=== PATIENT | male | born 1995 | race Caucasian/White ===

== ENCOUNTER 2020-02-25 08:17 | Emergency (ER) | payer SELFPAY ==
--- NOTE | 2020-02-25 09:08 | ER Document Report ---
ED General - General Chief Complaint: Drug Abuse Stated Complaint: PSYCH Time Seen by Provider: 02/25/20 08:56 - HPI Notes: 24-year-old male presents with drug abuse, seeking help. Patient states that he does meth fairly regularly, usually uses it every day. He states that he smokes it, snorts it, and shoots it. He additionally smokes marijuana and uses cocaine. States that he last used meth about 2 days ago. He states that he is "ready to get off drugs". Additionally per EMS, patient was hallucinating in the back of the ambulance, talking to people who were not there. He also reference that he was seeing snakes. Patient currently denies this. Patient additionally denies homicidal or suicidal ideations. He denies chest pain, shortness of breath, abdominal pain. - Related Data Allergies/Adverse Reactions: No Known Allergies Allergy (Verified 02/25/20 08:30) Past Medical History - General Information source: Patient - Social History Smoking Status: Current Every Day Smoker Frequency of alcohol use: Heavy Drug Abuse: Cocaine, Marijuana, Methamphetamine Family History: Reviewed & Not Pertinent Patient has homicidal ideation: No Review of Systems - Review of Systems Constitutional: denies: Fever EENT: No symptoms reported Cardiovascular: denies: Chest pain Respiratory: denies: Short of breath Gastrointestinal: denies: Abdominal pain Genitourinary: No symptoms reported Male Genitourinary: No symptoms reported Musculoskeletal: denies: Joint pain Skin: denies: Lesions Hematologic/Lymphatic: No symptoms reported Neurological/Psychological: Hallucinations Physical Exam - Vital signs Vitals: Temp Pulse Resp BP Pulse Ox 98.4 F 130 H 24 H 157/103 H 100 02/25/20 08:28 02/25/20 08:28 02/25/20 08:28 02/25/20 08:28 02/25/20 08:28 - General General appearance: Alert In distress: None - HEENT Head: Normocephalic, Atraumatic Eyes: No: Scleral icterus Extraocular movements intact: Yes Pupils: PERRL - Respiratory Breath sounds: Normal - Cardiovascular Rhythm: Regular, Tachycardia Heart sounds: Normal auscultation - Abdominal Tenderness: Nontender - Back Back: Nontender - Extremities General upper extremity: Normal inspection General lower extremity: Normal inspection - Neurological Neuro grossly intact: Yes Orientation: AAOx4 - Psychological Associated symptoms: Other - Patient exhibits some psychomotor agitation, he was seen pacing around and kicking the bottom of the bed. He does appear to look off into the distance and possibly responding to internal stimuli. He does request to "talk to that jasmeetmarya Baig" - Skin Skin Temperature: Warm Course - Re-evaluation Re-evalutation: 02/25/20 09:52 24-year-old male here for polysubstance abuse, meth/marijuana/cocaine. Per EMS there was concern for hallucinations. On exam he is a bit agitated, pacing about the room and kicking things. He does appear to be responding to internal stimuli. Given that he has not used methamphetamine in 2 days, concern for po ssible withdrawal state. Although he does appear to be intoxicated. Initially concern for potential drug-induced psychosis given the hallucinations. Will have psych consulted. Will start with 2 mg of Ativan to see if we can help calm him. Check labs and EKG. 02/25/20 10:10 Patient observed to be pacing around the room and looking under her bed sheets and mattress. Appears to be preoccupied internally. 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 Have recommended Thorazine 50 mg 3 times daily, Cogentin 1 mg daily. Have ordered these medications. 02/25/20 12:53 Patient continues to be responding to internal stimuli, he appears to be engaged in conversation with someone who is not in the room. This might have a little bit increased agitation, had success with benzodiazepines early, have ordered another oral dose. 02/25/20 14:48 Patient continues to exhibit psychosis, still redirectable and relatively pleasant. However and we discussed with behavioral health, concerned that Thorazine really has not had much effect, has received 2 doses at this point. Decision made to discontinue Thorazine. Will give Haldol IM now. QTC was within normal limits on EKG. Will repeat EKG once he is more calm. 02/25/20 15:41 Patient is now much more calm appearing status post Haldol. Repeat EKG obtain ed, has normal QTc. 02/25/20 16:28 Patient care is being turned over to Dr. Connelly, pending behavioral health final plan - Vital Signs Vital signs: Temp Pulse Resp BP Pulse Ox 98.4 F 90 24 H 157/103 H 100 02/25/20 08:30 02/25/20 11:52 02/25/20 08:28 02/25/20 08:28 02/25/20 08:28 - Laboratory Result Diagrams: 02/25/20 08:25 02/25/20 08:25 Laboratory results interpreted by me: 02/25/20 02/25/20 02/25/20 08:25 08:25 10:33 WBC 11.5 H Absolute Neuts (auto) 8.6 H Sodium 147.5 H Chloride 108 H BUN 21 H Creatinine 1.54 H Est GFR (MDRD) Non-Af 55 L Glucose 150 H Total Bilirubin 1.8 H Total Protein 8.3 H Urine Protein 100 H Urine Ketones 20 H Urine Blood LARGE H Urine Urobilinogen 2.0 H Ur Leukocyte Esterase TRACE H - EKG Interpretation by Me Additional EKG results interpreted by me: 02/25/20 09:56 EKG is interpreted by me. Sinus tachycardia, rate 101. Narrow QRS, QTC within normal limits. No ST elevation. 02/25/20 15:41 Repeat EKG is interpreted by me. Sinus tachycardia has resolved, rate now 77. QTc remains within normal limits. He does have a brief sinus pause. Discharge - Discharge Clinical Impression: Polysubstance abuse Psychosis Qualifiers: Psychosis type: brief psychotic disorder Qualified Code(s): F23 - Brief psychotic disorder Disposition: OTHER
[2020-02-25] MEDS ORDERED: LORAZEPAM INJ 2 MG/1 ML VIAL IV ONE (09:13)
[2020-02-25 09:21] LABS: ABSOLUTE BASOPHILS # (AUTO) 0.1 10^3/uL (0.0-0.2); ABSOLUTE LYMPHOCYTES (AUTO) 1.9 10^3/uL (0.5-4.7); ABSOLUTE MONOCYTES (AUTO) 0.9 10^3/uL (0.1-1.4); ABSOLUTE NEUT (AUTO) 8.6 10^3/uL (1.7-8.2); BASOPHILS % (AUTO) 0.5 % (0-2); EOSINOPHILS % (AUTO) 0.3 % (0-6); HEMATOCRIT 44.4 % (37.9-51.0); HEMOGLOBIN 15.3 g/dL (13.5-17.0); LYMPHOCYTES % (AUTO) 16.7 % (13-45); MEAN CORPUSCULAR HGB CONC 34.4 g/dL (32.0-36.0); MEAN CORPUSCULAR VOLUME 87 fl (80-97); MONOCYTES % (AUTO) 8.1 % (3-13); PLATELET COUNT 427 10^3/uL (150-450); RED CELL DISTRIBUTION WIDTH 13.2 % (11.5-14.0); SEGMENTED NEUTROPHILS % (AUTO) 74.4 % (42-78); TOTAL CELLS COUNTED % (AUTO) 100 %; WHITE BLOOD COUNT 11.5 10^3/uL (4.0-10.5)
[2020-02-25 09:32] LABS: ALKALINE PHOSPHATASE 71 U/L (38-126); ANION GAP 16 (5-19); ASPARTATE AMINO TRANSFERASE 48 U/L (17-59); BILIRUBIN,DIRECT 0.4 mg/dL (0.0-0.4); BILIRUBIN,TOTAL 1.8 mg/dL (0.2-1.3); BLOOD UREA NITROGEN 21 mg/dL (7-20); CALCIUM 10.2 mg/dL (8.4-10.2); CARBON DIOXIDE 24 mmol/L (22-30); CHLORIDE 108 mmol/L (98-107); GLUCOSE 150 mg/dL (75-110); POTASSIUM 3.7 mmol/L (3.6-5.0); TOTAL PROTEIN 8.3 g/dL (6.3-8.2)
[2020-02-25 09:37] LABS: ALCOHOL < 10 mg/dL (NONE DETECTED)
[2020-02-25] MEDS ORDERED: RINGERS SOLUTION,LACTATED 1,000 ML IV ONE (10:02)
--- NOTE | 2020-02-25 10:02 | RADIOLOGY REPORT (SQ) ---
EXAM DESCRIPTION: CHEST SINGLE VIEW IMAGES COMPLETED DATE/TIME: 02/25/2020 9:43 am REASON FOR STUDY: meth use COMPARISON: None. EXAM PARAMETERS: NUMBER OF VIEWS: One view. TECHNIQUE: Single frontal radiographic view of the chest acquired. RADIATION DOSE: NA LIMITATIONS: None. FINDINGS: LUNGS AND PLEURA: No opacities, masses or pneumothorax. No pleural effusion. MEDIASTINUM AND HILAR STRUCTURES: No masses. Contour normal. HEART AND VASCULAR STRUCTURES: Heart normal in size. Normal vasculature. BONES: No acute findings. HARDWARE: None in the chest. OTHER: No other significant finding. IMPRESSION: NO ACUTE RADIOGRAPHIC FINDING IN THE CHEST. TECHNICAL DOCUMENTATION: JOB ID: [id number] [employer]- All Rights Reserved Reading location - IP/workstation name: [email or web address]
--- NOTE | 2020-02-25 10:22 | EKG REPORT ---
SEVERITY:- OTHERWISE NORMAL ECG - SINUS TACHYCARDIA : Confirmed by: Rae Zaragoza MD 25-Feb-2020 10:21:50
[2020-02-25] MEDS ORDERED: BENZTROPINE MESYLATE 1 MG TABLET PO SCH (10:45)
[2020-02-25] MEDS: CHLORPROMAZINE HCL 50 MG TABLET PO SCH ×2 (10:49→13:55)
[2020-02-25 11:09] LABS: APPEARANCE,URINE CLOUDY; BILIRUBIN,URINE NEGATIVE (NEGATIVE); COLOR,URINE AMBER; GLUCOSE, URINE NEGATIVE (NEGATIVE); KETONES,URINE 20 mg/dL (NEGATIVE); LEUKOCYTE ESTERASE,URINE TRACE (NEGATIVE); NITRITE,URINE NEGATIVE (NEGATIVE); PROTEIN,URINE 100 mg/dL (NEGATIVE)
[2020-02-25 11:38] LABS: URINE BARBITURATES SCREEN NEGATIVE; URINE BENZODIAZEPINES SCREEN NEGATIVE; URINE COCAINE SCREEN NEGATIVE; URINE METHADONE SCREEN NEGATIVE; URINE PHENCYCLIDINE SCREEN NEGATIVE
[2020-02-25 11:47] LABS: URINE MARIJUANA (THC) SCREEN UNCONFIRMED POSITIVE
--- NOTE | 2020-02-25 12:00 | PSYCHOLOGICAL NOTE ---
Psych Note - Psych Note Date seen by psych provider: 02/25/20 Time seen by psych provider: 10:30 Psych Note: Reason For Consult: Detox Patient presented to [facility] ED via EMS requesting assistance with detox. He confirms with clinician that he would like to stop using drugs. Patient reports he uses methamphetamines and is currently presenting as if still under the influence. Patient denies any thoughts of wanting to harm himself or others. Patient is very pleasant however clearly is demonstrating behaviors of responding to internal stimuli. Patient is playing with his IV hose and asked clinician to show him how to work the IV. When patient is asked not to play with the IV hose he complies immediately. Patient confirms he is attempted to detox previously however is unable to articulate when or where. Chart Review: No previous visits for this patient Toxicology screening supports patient's report of methamphetamine use with probable positive amphetamine and THC Medication recommendations per [facility]'s contracted psychiatrist Dr. Tanisha PATRICK are as follows: Thorazine 50 mg every 8 Cogentin 1 mg daily Clinical presentation: Substance induced psychosis Impression\plan: Patient is currently at [facility] ED voluntarily requesting assistance with detox. Patient is currently demonstrating behaviors of responding to internal stimuli. Medication recommendations have been provided. Patient will be reassessed to determine his cognitive processes and willingness to continue with substance use treatment. Dr. Velasco was consulted to care management of this patient; tending physicians in agreement with recommendations and disposition. Patient has continued to demonstrate substance inducted psychosis; new medication recommendations per [facility]'s contracted psychiatrist Dr. Tanisha PATRICK are as follows: Discontinue thorazine Haldol 5mg IM once Impression/Plan: Patient has been sleeping since receiving this medication. At this time, the patient is voluntary. He requested assistance with detox. He denies suicidal and homicidal ideation. Once patient awakens, if continued psychosis continues, 24 hour petition for evaluation can be completed for substance induced psychosis if needed; however. patient has been very re- directable and compliant. If the patient is alert and orientated, the patient can self-refer to [facility] for continued detox assistance. If there are any new concern please re-consult/contact the behavioral health team. Dr. Velasco was consulted in the care management of this patient; tending physicians in agreement with recommendations and disposition.
[2020-02-25] MEDS ORDERED: LORAZEPAM 1 MG TABLET PO ONE (12:52)
[2020-02-25] MEDS ORDERED: HALOPERIDOL LACTATE INJ 5 MG/1 ML VIAL IM ONE (14:47)
--- NOTE | 2020-02-25 21:48 | EKG REPORT ---
SEVERITY:- ABNORMAL ECG - SINUS ARRHYTHMIA, RATE 63-88 PROLONGED QT INTERVAL : Confirmed by: Rae Zaragoza MD 25-Feb-2020 21:48:23
[2020-02-26 06:10] VITALS: BP 130/86
== END 2020-02-26 10:10 | disposition other institution (70) ==
LOC: ER 08:17
DX: F23 Brief psychotic disorder (principal); F19.10 Other psychoactive substance abuse, uncomplicated; F12.10 Cannabis abuse, uncomplicated; F14.10 Cocaine abuse, uncomplicated; F17.200 Nicotine dependence, unspecified, uncomplicated
CPT/HCPCS: 93005; 99285; 96372; 96361; 96374; 36415; 80307 ×2; 85025; 80053; 81001; 84484; 71045; 93010; J3490; J1630; J2060; J7120

== ENCOUNTER 2020-06-07 23:16 | Emergency (ER) | payer SELFPAY ==
[2020-06-07 23:54] LABS: ABSOLUTE EOSINOPHILS # (AUTO) 0.2 10^3/uL (0.0-0.6); ABSOLUTE LYMPHOCYTES (AUTO) 1.8 10^3/uL (0.5-4.7); ABSOLUTE MONOCYTES (AUTO) 0.5 10^3/uL (0.1-1.4); ABSOLUTE NEUT (AUTO) 10.5 10^3/uL (1.7-8.2); BASOPHILS % (AUTO) 0.2 % (0-2); EOSINOPHILS % (AUTO) 1.4 % (0-6); HEMATOCRIT 38.3 % (37.9-51.0); HEMOGLOBIN 13.1 g/dL (13.5-17.0); LYMPHOCYTES % (AUTO) 13.6 % (13-45); MEAN CORPUSCULAR HEMOGLOBIN 30.1 pg (27.0-33.4); MEAN CORPUSCULAR HGB CONC 34.3 g/dL (32.0-36.0); MEAN CORPUSCULAR VOLUME 88 fl (80-97); PLATELET COUNT 281 10^3/uL (150-450); RED BLOOD COUNT 4.35 10^6/uL (4.35-5.55); RED CELL DISTRIBUTION WIDTH 12.3 % (11.5-14.0); SEGMENTED NEUTROPHILS % (AUTO) 80.8 % (42-78); TOTAL CELLS COUNTED % (AUTO) 100 %; WHITE BLOOD COUNT 12.9 10^3/uL (4.0-10.5)
[2020-06-08 00:11] LABS: ALBUMIN 3.8 g/dL (3.5-5.0); ALKALINE PHOSPHATASE 52 U/L (38-126); ANION GAP 6 (5-19); ASPARTATE AMINO TRANSFERASE 58 U/L (17-59); BILIRUBIN,TOTAL 0.4 mg/dL (0.2-1.3); BLOOD UREA NITROGEN 18 mg/dL (7-20); CARBON DIOXIDE 31 mmol/L (22-30); CHLORIDE 100 mmol/L (98-107); GLUCOSE 172 mg/dL (75-110); POTASSIUM 3.9 mmol/L (3.6-5.0); TOTAL PROTEIN 6.7 g/dL (6.3-8.2)
[2020-06-08 00:12] LABS: ACETAMINOPHEN < 10 ug/mL (10-30); ALCOHOL < 10 mg/dL (NONE DETECTED); SALICYLATE < 1.0 mg/dL (2.0-20.0)
[2020-06-08 00:28] LABS: APPEARANCE,URINE CLEAR; BILIRUBIN,URINE NEGATIVE (NEGATIVE); COLOR,URINE YELLOW; GLUCOSE, URINE NEGATIVE (NEGATIVE); KETONES,URINE NEGATIVE (NEGATIVE); LEUKOCYTE ESTERASE,URINE TRACE (NEGATIVE); NITRITE,URINE NEGATIVE (NEGATIVE); PROTEIN,URINE 30 mg/dL (NEGATIVE); URINE SPECIFIC GRAVITY 1.021; UROBILINOGEN,URINE NEGATIVE mg/dL (<2.0)
[2020-06-08 00:38] LABS: URINE AMPHETAMINES SCREEN NEGATIVE; URINE BARBITURATES SCREEN NEGATIVE; URINE BENZODIAZEPINES SCREEN NEGATIVE; URINE COCAINE SCREEN NEGATIVE; URINE METHADONE SCREEN NEGATIVE; URINE PHENCYCLIDINE SCREEN NEGATIVE
[2020-06-08 00:40] LABS: URINE MARIJUANA (THC) SCREEN UNCONFIRMED POSITIVE
--- NOTE | 2020-06-08 00:45 | ER Document Report ---
ED Substance Abuse / Acc. OD - General Chief Complaint: Overdose Stated Complaint: POSSIBLE OVERDOSE Time Seen by Provider: 06/07/20 23:56 Mode of Arrival: Medic Information source: Patient, Emergency Med Personnel - [facility] Notes: 24-year-old male with a history of polysubstance abuse presents via EMS having inadvertently overdosed on heroin while snorting it. Also uses methamphetamine and marijuana from time to time but denies using either of those tonight. Was admitted here at the hospital for similar event some weeks ago and then transferred to a local mental health facility. He signed himself out after 1 day refusing to stay for any treatment. He says now that he is not interested in any sort of an inpatient or structured outpatient treatment program. He just wants to go home. He is accompanied now by his mother who is very concerned about him. - Related Data Allergies/Adverse Reactions: No Known Allergies Allergy (Verified 06/07/20 23:24) Past Medical History - Social History Smoking Status: Current Every Day Smoker Frequency of alcohol use: Occasional Drug Abuse: Heroin, Marijuana, Methamphetamine Family History: Reviewed & Not Pertinent Patient has homicidal ideation: No - Medical History Medical History: Other Notes: Polysubstance abuse as noted above. Otherwise unremarkable. Review of Systems - Review of Systems Notes: All other systems are reviewed and are negative or noncontributory except as no bony in the history of present illness. Physical Exam - Vital signs Vitals: Resp Pulse Ox 14 100 06/07/20 23:19 06/07/20 23:19 - Notes Notes: General: This is an alert cooperative male in no acute distress. Vital signs and nursing documentation are reviewed. Lungs: Clear to auscultation all nye. Heart: Regular rate and rhythm without murmur. Neuro: Patient is alert and oriented x3. Cranial nerves appear intact. Strength sensation gait and station are all within normal limits. Course - Re-evaluation Re-evalutation: 06/08/20 00:45 Patient remained alert and hemodynamically stable throughout his stay. His labs were not diagnostic except for his urine drug screen. We discussed treatment options. He does not meet criteria for involuntary commitment as he is not suicidal nor homicidal at this point. He is awake alert fully oriented and capable of making his own judgments about his behavior. I advised him that it was in his best interest to stop using drugs and to seek help. We talked about some of the things that he has to live for including seeing his son grow up. The patient was quite resistant to any recommendations for treatment. - Vital Signs Vital signs: Temp Pulse Resp BP Pulse Ox 99.4 F 64 14 120/72 100 06/08/20 02:15 06/08/20 02:15 06/08/20 02:15 06/08/20 02:15 06/08/20 02:15 - Laboratory Result Diagrams: 06/07/20 23:35 06/07/20 23:35 Laboratory results interpreted by me: 06/07/20 06/07/20 06/08/20 23:35 23:35 00:08 WBC 12.9 H Hgb 13.1 L Absolute Neuts (auto) 10.5 H Seg Neutrophils % 80.8 H Sodium 136.7 L Carbon Dioxide 31 H Glucose 172 H Urine Protein 30 H Ur Leukocyte Esterase TRACE H Salicylates < 1.0 L Acetaminophen < 10 L - EKG Interpretation by Me EKG shows normal: Sinus rhythm, [place], Intervals, QRS Complexes, ST-T Waves Discharge - Discharge Clinical Impression: Heroin overdose Qualifiers: Encounter type: initial encounter Injury intent: accidental or unintentional Qualified Code(s): T40.1X1A - Poisoning by heroin, accidental (unintentional), initial encounter Condition: Stable Disposition: HOME, SELF-CARE Additional Instructions: Recommend you seek out outpatient treatment for your substance abuse disorder. Return to the emergency department if any concerning symptoms develop.
[2020-06-08 02:17] VITALS: BP 120/72
--- NOTE | 2020-06-08 17:43 | EKG REPORT ---
SEVERITY:- NORMAL ECG - SINUS RHYTHM : Confirmed by: Felipe Joseph 08-Jun-2020 17:42:39
== END 2020-06-08 02:15 | disposition home or self-care (01) ==
LOC: ER 23:16
DX: T40.1X1A Poisoning by heroin, accidental (unintentional), initial encounter (principal); F17.200 Nicotine dependence, unspecified, uncomplicated
CPT/HCPCS: 36415; 80053; 80307; 81001; 85025; 93005; 93010; 99284